=== PATIENT | female | born 1995 | race Caucasian/White ===

== ENCOUNTER 2018-09-29 15:10 | Emergency (ER) | payer BC ==
[~2018-09-29] VITALS: Ht 154.9 cm; Wt 56.8 kg
[2018-09-29 15:19] VITALS: TEMP 98
[2018-09-29 15:38] LABS: COLLECTION METHOD CLEAN CATCH
[2018-09-29 15:45] LABS: MUCOUS Present /lpf; PH 5 (5-8); URINE APPEARANCE Cloudy; URINE BACTERIA None Seen /hpf; URINE BILIRUBIN Negative (NEGATIVE); URINE BLOOD 3+ (NEGATIVE); URINE COLOR Yellow; URINE GLUCOSE Negative (NEGATIVE); URINE KETONE 1+ (NEGATIVE); URINE LEUKOCYTE ESTERASE 2+ (NEGATIVE); URINE NITRATE Negative (NEGATIVE); URINE PROTEIN(semi-quant) Negative (NEGATIVE); URINE RBC >50 /hpf; URINE UROBILINOGEN Negative (NEGATIVE)
[2018-09-29 15:58] LABS: BASO # 0.1 (0.0-0.2); BASO % 0.4 % (0.0-2.0); EOS % 0.3 % (0-4.0); GRAN % 81.6 % (42.2-75.2); HEMATOCRIT 39.7 % (37.0-47.0); HEMOGLOBIN 13.3 g/dl (12.5-16.0); LYMPH # 1.7 (1.2-3.4); LYMPH % 12.9 % (20.0-51.0); MEAN CELL VOLUME 85 fl (80.0-100.0); MEAN CORPUSCULAR HEMOGLOBIN 29 pg (27.0-31.0); MEAN CORPUSCULAR HGB CONC 34 g/dl (33.0-37.0); MEAN PLATELET VOLUME 12.4 fl (7.4-10.4); MONO # 0.6 (0.1-0.6); MONO % 4.5 % (1.7-9.3); PLATELET COUNT 189 K/mm3 (130-400); RED BLOOD COUNT 4.65 M/mm3 (4.10-5.30); REDCELL DISTRIBUTION WIDTH-CV 15.7 % (11.5-14.5)
[2018-09-29] MEDS ORDERED: PERCOCET 325 MG1 TA2 PO (16:57)
[2018-09-29] MEDS ORDERED: CEFTIN500 MG PO (16:57)
[2018-09-29] MEDS ORDERED: ZOFRAN ODT4 MG PO (16:57)
[2018-09-29 17:15] LABS: ALANINE AMINOTRANSFERASE 19 U/L (9-52); ALBUMIN 3.4 gm/dL (3.5-5.0); ALKALINE PHOSPHATASE 34 U/L (50-136); ANION GAP 9 mmol/L (7-16); AST,SGOT 22 U/L (15-37); BILIRUBIN,TOTAL 0.7 mg/dL (0.0-1.0); BLOOD UREA NITROGEN 19 mg/dL (7-17); CALCIUM 8.5 mg/dL (8.4-10.2); CARBON DIOXIDE 22 mmol/L (22-30); CHLORIDE 104 mmol/L (98-107); CREATININE, serum 0.73 (0.52-1.25); GLUCOSE 84 mg/dL (74-106); POTASSIUM 3.6 mmol/L (3.4-5.0); SODIUM 134 mmol/L (137-145)
[2018-09-29 17:17] LABS: C-REACTIVE PROTEIN < 0.5 mg/dL (0.0-0.9)
[2018-09-29 18:50] VITALS: BP 119/67; PULSE 78
== END 2018-09-29 18:50 | disposition home or self-care (01) ==
LOC: COL.ER 15:10
PROVIDERS: Emergency Medicine; Physician Assistant
DX: N13.2 Hydronephrosis with renal and ureteral calculous obstruction (principal); Z98.890 Other specified postprocedural states
CPT/HCPCS: J0696; J1170; J1885; J2405; J7030; Q9967